=== PATIENT | female | born 2005 | race Hispanic/Latino ===

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

== ENCOUNTER 2024-05-27 20:38 | Emergency (ER) | payer MEDICAID, OTHER, SELFPAY ==
[2024-05-27] MEDS ORDERED: Acetaminophen 500 MG TAB ONE (22:42)
[2024-05-27] MEDS ORDERED: Bacitracin 1 PK ONE (22:42)
== END 2024-05-27 22:55 | disposition home or self-care (01) ==
LOC: ERS 20:38
DX: S06.0X0A Concussion without loss of consciousness, initial encounter (principal); S01.112A Laceration without foreign body of left eyelid and periocular area, initial encounter; S80.02XA Contusion of left knee, initial encounter; Y92.69 Other specified industrial and construction area as the place of occurrence of the external cause
CPT/HCPCS: 99283